=== PATIENT | male | born 1975 | race Caucasian/White ===

== ENCOUNTER 2017-07-14 22:46 | Emergency (ER) | payer OTHER ==
[2017-07-15] MEDS: DICYCLOMINE 10 MG CAP PO (01:14)
[2017-07-15] MEDS: ONDANSETRON (ODT) 4 MG TAB ODT (01:14)
== END 2017-07-15 01:45 | disposition home or self-care (01) ==
LOC: FTE 22:46
DX: A08.4 Viral intestinal infection, unspecified (principal); I10 Essential (primary) hypertension
CPT/HCPCS: 99284; Z7502

== ENCOUNTER 2018-07-16 20:46 | Emergency (ER) | payer OTHER | END 2018-07-16 23:42 | disposition home or self-care (01) | LOC: FTE 20:46 | DX: N48.1 Balanitis (principal); I10 Essential (primary) hypertension | CPT/HCPCS: 99283; Z7502 ==